=== PATIENT | male | born 1975 | race Caucasian/White ===

== ENCOUNTER 2016-09-08 20:20 | Emergency (ER) | payer OTHER ==
[~2016-09-08] VITALS: Ht 175.3 cm; Wt 106.6 kg
[~2016-09-08 20:20] MED LIST: AMITRIPTYLINE H10 M1 PO; ANALPRAM HC 2.530 GM RECTAL; ATORVASTATIN CA40 MG PO; BENTYL 10 MG CA10 M1 PO; CARISOPRODOL 3350 MG PO; CELEBREX 200 M200 M1 PO; CLONAZEPAM 1 MG1 M1; CLONAZEPAM 1 MG1 M1 PO; CLONAZEPAM PO; COLACE100 MG PO; DOXYCYCLINE 10100 MG PO; FISH OIL 1,001000 M2 PO; FLEXERIL PO; HYDROCHLOROTH12.5 M1 PO; HYDROCHLOROTH12.5 MG PO; HYOSCYAMINE0.125 MG PO; KLONOPIN0.5 MG PO; KLONOPIN1 MG PO; LIPITOR20 MG PO; MEDROLDOSEPACK PO; METAMUCIL PAC1 UDPKT PO; MICARDIS40 MG PO; MIRALAX17 GM PO; MULTIVITAMINS1 EAC7 PO; NAPROSYN500 MG PO; NEURONTIN600 MG PO; NORCO 5-325 TA1 EACH PO; ONDANSETRON HCL4 M2 PO; OXYCODONE HCL 55 MG PO; PERCOCET 5-3251 EACH PO; PREDNISONE 20 M20 MG PO; PRISTIQ100 MG; PRISTIQ50 MG PO; RITALIN PO; STRATTERA100 MG PO; TRAZODONE 100100 MG PO; TRILIPIX135 MG PO; TRILIPIX45 MG PO; VISTARIL 25 MG25 M1 PO
[2016-09-08] MEDS ORDERED: IMITREX100 MG PO (20:27)
[2016-09-08 21:30] LABS: CALCIUM 9.2 mg/dL (8.5-10.1); POTASSIUM 3.9 mmol/L (3.5-5.1)
[2016-09-08 21:57] LABS: ABSOLUTE NEUTROPHILS 5.9 thou/uL (1.4-8.2); BASOPHILS 0.8 % (0.0-2.0); EOSINOPHILS 2.6 % (0.0-3.0); HEMATOCRIT 43.4 % (42.0-52.0); HEMOGLOBIN 14.9 gm/dL (14.0-18.0); LYMPHOCYTES 31.6 % (24.0-44.0); MCH 32.7 pg (26.0-34.0); MCHC 34.3 g/dL (28.0-37.0); MCV 95.4 fL (80.0-100.0); MONOCYTES 9.4 % (1.0-8.0); PLATELET COUNT 226 thou/uL (150-400); POLYS 55.6 % (36.0-66.0); RBC 4.55 mil/uL (4.50-6.00); RDW 13.3 % (10.5-14.5); URINE BILIRUBIN NEGATIVE (Negative); URINE BLOOD TRACE (Negative); URINE COLOR YELLOW; URINE GLUCOSE-RANDOM* NEGATIVE (Negative); URINE KETONES NEGATIVE (Negative); URINE LEUKOCYTES-REFLEX NEGATIVE (Negative); URINE PROTEIN (DIPSTICK) NEGATIVE (Negative); URINE SPECIFIC GRAVITY >= 1.030 (1.003-1.035); URINE UROBILINOGEN 0.2 E.U./dl (0.2-1.0); WBC 10.6 thou/uL (4.0-11.0)
[2016-09-08 21:59] LABS: MANUAL DIFF NO
[2016-09-08 22:05] LABS: AMP/METHAMP Negative (Negative); BARBITURATES Negative (Negative); BENZODIAZEPINES Negative (Negative); COCAINE Negative (Negative); METHADONE Negative (Negative); OPIATES Negative (Negative); PCP Negative (Negative); THC Negative (Negative)
[2016-09-08] MEDS ORDERED: ULTRAM 50MG TAB50 MG PO (22:34)
[2016-09-08 22:47] VITALS: BP 126/67
== END 2016-09-08 22:35 | disposition still patient (30) ==
LOC: ER 20:20
PROVIDERS: Emergency Medicine
DX: G43.909 Migraine, unspecified, not intractable, without status migrainosus (principal); F41.9 Anxiety disorder, unspecified; I10 Essential (primary) hypertension; E78.00 Pure hypercholesterolemia, unspecified; G47.30 Sleep apnea, unspecified; K58.9 Irritable bowel syndrome, unspecified; Z88.8 Allergy status to other drugs, medicaments and biological substances; Z87.442 Personal history of urinary calculi; Z90.49 Acquired absence of other specified parts of digestive tract; Z88.6 Allergy status to analgesic agent; Z88.5 Allergy status to narcotic agent

== ENCOUNTER 2017-03-17 13:10 | Emergency (ER) | payer OTHER ==
[~2017-03-17] VITALS: Ht 167.6 cm; Wt 99.8 kg
[~2017-03-17 13:10] MED LIST changes: +IMITREX100 MG PO; +ULTRAM 50MG TAB50 MG PO
[2017-03-17] MEDS ORDERED: NORFLEX100 MG PO (14:30)
[2017-03-17] MEDS ORDERED: NAPROSYN500 MG PO (14:30)
[2017-03-17 15:07] VITALS: BP 142/78
== END 2017-03-17 15:08 | disposition home or self-care (01) ==
LOC: ER 13:10
DX: S30.0XXA Contusion of lower back and pelvis, initial encounter (principal); I10 Essential (primary) hypertension; G89.29 Other chronic pain; F41.9 Anxiety disorder, unspecified; K58.9 Irritable bowel syndrome, unspecified; E78.00 Pure hypercholesterolemia, unspecified; Z87.442 Personal history of urinary calculi; Z90.49 Acquired absence of other specified parts of digestive tract; Z88.8 Allergy status to other drugs, medicaments and biological substances; Z88.6 Allergy status to analgesic agent

== ENCOUNTER 2018-06-04 19:15 | Emergency (ER) | payer OTHER ==
[~2018-06-04] VITALS: Ht 172.7 cm; Wt 113.4 kg
[~2018-06-04 19:15] MED LIST changes: +NORFLEX100 MG PO
[2018-06-04 19:55] LABS: HEMATOCRIT 44.9 % (42.0-52.0); HEMOGLOBIN 15.8 gm/dL (14.0-18.0); MCH 33.1 pg (26.0-34.0); MCHC 35.3 g/dL (28.0-37.0); MCV 93.8 fL (80.0-100.0); RBC 4.78 mil/uL (4.50-6.00); WBC 8.6 thou/uL (4.0-11.0)
[2018-06-04 20:00] LABS: ANION GAP 7 mmol/L (7-16); BUN 16 mg/dL (7-18); CHLORIDE 104 mmol/L (98-107); CO2 30 mmol/L (21-32); GLUCOSE 102 mg/dL (74-106); POTASSIUM 3.5 mmol/L (3.5-5.1); SODIUM 141 mmol/L (136-145)
[2018-06-04] MEDS ORDERED: ATORVASTATIN CA40 MG PO (20:06)
[2018-06-04] MEDS ORDERED: NORVASC5 MG PO (20:06)
[2018-06-04] MEDS ORDERED: ASPIR 8181 MG PO (20:06)
[2018-06-04] MEDS ORDERED: HYZAAR 100-12.1 EACH PO (20:07)
[2018-06-04] MEDS ORDERED: VERAPAMIL HCL40 MG PO (20:08)
[2018-06-04] MEDS ORDERED: WELLBUTRIN XL150 MG PO (20:09)
[2018-06-04 20:10] LABS: ALBUMIN 3.8 g/dL (3.4-5.0); SGOT 27 U/L (15-37); SGPT 43 U/L (30-65); TOTAL BILIRUBIN 0.3 mg/dL (<0.1-1.0); TOTAL PROTEIN 7.2 g/dL (6.4-8.2); TROPONIN-I <0.06 ng/mL (<0.06)
[2018-06-04 21:10] LABS: URINE BILIRUBIN NEGATIVE (Negative); URINE BLOOD 1+ (Negative); URINE CLARITY CLEAR; URINE COLOR YELLOW; URINE GLUCOSE-RANDOM* NEGATIVE (Negative); URINE KETONES NEGATIVE (Negative); URINE LEUKOCYTES-REFLEX NEGATIVE (Negative); URINE NITRITE-REFLEX NEGATIVE (Negative); URINE PROTEIN (DIPSTICK) NEGATIVE (Negative); URINE SPECIFIC GRAVITY 1.015 (1.005-1.035); URINE UROBILINOGEN 0.2 E.U./dl (0.2-1.0)
[2018-06-04] MEDS ORDERED: NORCO 5-325 TA1 EACH PO (21:27)
[2018-06-04] MEDS ORDERED: TORADOL 10 MG T10 MG PO (21:27)
[2018-06-04 22:32] LABS: BACTERIA-REFLEX 1-9 Few /HPF (None Seen); CALCIUM OXALATE 0-3 Few /LPF (None Seen); CASTS None Seen /LPF (None Seen); SQUAMOUS 0-3 Few /LPF (0-3); URINE RBC 0-2 Rare /HPF (0-2); URINE WBC-REFLEX 0-5 Rare /HPF (0-5)
[2018-06-04] MEDS ORDERED: MIRALAX17 GM PO (23:13)
[2018-06-04 23:28] VITALS: BP 127/91
== END 2018-06-04 23:29 | disposition home or self-care (01) ==
LOC: ER 19:15
PROVIDERS: Student in an Organized Health Care Education/Training Program
DX: N20.0 Calculus of kidney (principal); G43.909 Migraine, unspecified, not intractable, without status migrainosus; F41.9 Anxiety disorder, unspecified; K58.9 Irritable bowel syndrome, unspecified; E78.00 Pure hypercholesterolemia, unspecified; G47.30 Sleep apnea, unspecified; I10 Essential (primary) hypertension; Z87.442 Personal history of urinary calculi; Z90.49 Acquired absence of other specified parts of digestive tract; Z88.8 Allergy status to other drugs, medicaments and biological substances

== ENCOUNTER 2018-07-10 15:46 | Emergency (ER) | payer OTHER ==
[~2018-07-10] VITALS: Ht 175.3 cm; Wt 113.4 kg
[~2018-07-10 15:46] MED LIST changes: +ASPIR 8181 MG PO; +HYZAAR 100-12.1 EACH PO; +NORVASC5 MG PO; +TORADOL 10 MG T10 MG PO; +VERAPAMIL HCL40 MG PO; +WELLBUTRIN XL150 MG PO
[2018-07-10 16:07] LABS: URINE BILIRUBIN NEGATIVE (Negative); URINE BLOOD 2+ (Negative); URINE CLARITY CLEAR; URINE COLOR YELLOW; URINE GLUCOSE-RANDOM* NEGATIVE (Negative); URINE KETONES NEGATIVE (Negative); URINE LEUKOCYTES-REFLEX NEGATIVE (Negative); URINE NITRITE-REFLEX NEGATIVE (Negative); URINE PROTEIN (DIPSTICK) 1+ (Negative); URINE SPECIFIC GRAVITY >= 1.030 (1.005-1.035); URINE UROBILINOGEN 0.2 E.U./dl (0.2-1.0)
[2018-07-10 16:15] LABS: CRYSTALS None Seen /LPF (None Seen); SQUAMOUS None Seen /LPF (0-3); URINE RBC 0-2 Rare /HPF (0-2)
[2018-07-10 16:16] LABS: BACTERIA-REFLEX 1-9 Few /HPF (None Seen); HYALINE CASTS 0-3 Few /LPF (None Seen); URINE WBC-REFLEX None Seen /HPF (0-5)
[2018-07-10 17:14] LABS: ABSOLUTE NEUTROPHILS 4.7 thou/uL (1.4-8.2); EOSINOPHILS 1.4 % (0.0-3.0); HEMATOCRIT 41.9 % (42.0-52.0); HEMOGLOBIN 14.7 gm/dL (14.0-18.0); LYMPHOCYTES 28.9 % (24.0-44.0); MCH 33.4 pg (26.0-34.0); MCHC 35.2 g/dL (28.0-37.0); MCV 94.9 fL (80.0-100.0); MONOCYTES 8.8 % (1.0-8.0); PLATELET COUNT 234 thou/uL (150-400); POLYS 59.9 % (36.0-66.0); RBC 4.41 mil/uL (4.50-6.00); RDW 12.8 % (10.5-14.5); WBC 7.9 thou/uL (4.0-11.0)
[2018-07-10 17:22] LABS: POTASSIUM 3.5 mmol/L (3.5-5.1)
[2018-07-10 17:29] LABS: ALBUMIN 3.5 g/dL (3.4-5.0); TOTAL BILIRUBIN 0.5 mg/dL (<0.1-1.0); TOTAL PROTEIN 6.5 g/dL (6.4-8.2)
[2018-07-10] MEDS ORDERED: NORCO 5-325 TA1 EACH PO (18:39)
[2018-07-10] MEDS ORDERED: BACTRIM DS TAB1 EACH PO (18:39)
[2018-07-10 19:14] VITALS: BP 170/108
== END 2018-07-10 19:19 | disposition home or self-care (01) ==
LOC: ER 15:46
PROVIDERS: Physician Assistant
DX: R10.9 Unspecified abdominal pain (principal); K58.9 Irritable bowel syndrome, unspecified; E78.00 Pure hypercholesterolemia, unspecified; G47.30 Sleep apnea, unspecified; G43.909 Migraine, unspecified, not intractable, without status migrainosus; F41.9 Anxiety disorder, unspecified; I10 Essential (primary) hypertension; Z87.442 Personal history of urinary calculi; Z90.49 Acquired absence of other specified parts of digestive tract; Z88.8 Allergy status to other drugs, medicaments and biological substances; Z98.52 Vasectomy status

== ENCOUNTER 2018-11-14 14:19 | Emergency (ER) | payer OTHER ==
[~2018-11-14] VITALS: Ht 175.3 cm; Wt 113.4 kg
[~2018-11-14 14:19] MED LIST changes: +BACTRIM DS TAB1 EACH PO
[2018-11-14 14:42] LABS: URINE BILIRUBIN NEGATIVE (Negative); URINE BLOOD 2+ (Negative); URINE CLARITY CLEAR; URINE COLOR YELLOW; URINE GLUCOSE-RANDOM* TRACE (Negative); URINE KETONES NEGATIVE (Negative); URINE LEUKOCYTES NEGATIVE (Negative); URINE NITRITE NEGATIVE (Negative); URINE PROTEIN (DIPSTICK) NEGATIVE (Negative); URINE SPECIFIC GRAVITY 1.025 (1.005-1.035); URINE UROBILINOGEN 0.2 E.U./dl (0.2-1.0)
[2018-11-14 14:53] LABS: SQUAMOUS 0-3 Few /LPF (0-3)
[2018-11-14 14:54] LABS: CASTS None Seen /LPF (None Seen); MUCUS 4-6 Moderate strn/LPF (None Seen); URINE RBC 3-10 Few /HPF (0-2); URINE WBC 0-5 Rare /HPF (0-5)
[2018-11-14 14:55] LABS: BACTERIA 1-9 Few /HPF (None Seen); CRYSTALS None Seen /LPF (None Seen)
[2018-11-14 15:01] LABS: ABSOLUTE NEUTROPHILS 8.1 thou/uL (1.4-8.2); BASOPHILS 0.8 % (0.0-2.0); EOSINOPHILS 1.2 % (0.0-3.0); HEMATOCRIT 47.4 % (42.0-52.0); HEMOGLOBIN 16.5 gm/dL (14.0-18.0); LYMPHOCYTES 20.3 % (24.0-44.0); MCH 33.3 pg (26.0-34.0); MCHC 34.9 g/dL (28.0-37.0); MCV 95.4 fL (80.0-100.0); MONOCYTES 6.9 % (1.0-8.0); PLATELET COUNT 228 thou/uL (150-400); POLYS 70.8 % (36.0-66.0); RBC 4.97 mil/uL (4.50-6.00); RDW 12.9 % (10.5-14.5); WBC 11.4 thou/uL (4.0-11.0)
[2018-11-14 15:07] LABS: CALCIUM 9.9 mg/dL (8.5-10.1); CREATININE 1.1 mg/dL (0.7-1.3); POTASSIUM 3.6 mmol/L (3.5-5.1)
[2018-11-14 15:13] LABS: ALBUMIN 3.9 g/dL (3.4-5.0); TOTAL BILIRUBIN 0.4 mg/dL (<0.1-1.0); TOTAL PROTEIN 7.5 g/dL (6.4-8.2)
[2018-11-14] MEDS ORDERED: NAPROSYN500 MG PO (16:52)
[2018-11-14] MEDS ORDERED: BENTYL 20 MG TA20 M1 PO (16:52)
[2018-11-14 17:06] VITALS: BP 147/106
== END 2018-11-14 17:06 | disposition home or self-care (01) ==
LOC: ER 14:19
PROVIDERS: Emergency Medicine
DX: M54.5 Low back pain (principal); G43.909 Migraine, unspecified, not intractable, without status migrainosus; F41.9 Anxiety disorder, unspecified; I10 Essential (primary) hypertension; K58.9 Irritable bowel syndrome, unspecified; E78.00 Pure hypercholesterolemia, unspecified; G47.30 Sleep apnea, unspecified; Z87.442 Personal history of urinary calculi; Z90.49 Acquired absence of other specified parts of digestive tract; Z98.52 Vasectomy status; Z87.891 Personal history of nicotine dependence; Z88.8 Allergy status to other drugs, medicaments and biological substances

== ENCOUNTER 2019-01-30 17:16 | Emergency (ER) | payer OTHER ==
[~2019-01-30] VITALS: Ht 175.3 cm; Wt 113.4 kg
[~2019-01-30 17:16] MED LIST changes: +BENTYL 20 MG TA20 M1 PO
[2019-01-30] MEDS ORDERED: LOSARTAN-HCTZ1 EAC3 PO (17:34)
[2019-01-30 17:51] LABS: ABSOLUTE NEUTROPHILS 6.7 thou/uL (1.4-8.2); BASOPHILS 0.7 % (0.0-2.0); EOSINOPHILS 0.7 % (0.0-3.0); HEMATOCRIT 45.3 % (42.0-52.0); HEMOGLOBIN 15.6 gm/dL (14.0-18.0); LYMPHOCYTES 22.2 % (24.0-44.0); MCH 32.5 pg (26.0-34.0); MCHC 34.4 g/dL (28.0-37.0); MCV 94.7 fL (80.0-100.0); MONOCYTES 5.4 % (1.0-8.0); PLATELET COUNT 232 thou/uL (150-400); RBC 4.79 mil/uL (4.50-6.00); RDW 12.7 % (10.5-14.5); WBC 9.4 thou/uL (4.0-11.0)
[2019-01-30 17:57] LABS: ANION GAP 10 mmol/L (7-16); BUN 12 mg/dL (7-18); CALCIUM 9.6 mg/dL (8.5-10.1); CHLORIDE 106 mmol/L (98-107); CO2 25 mmol/L (21-32); CREATININE 1.1 mg/dL (0.7-1.3); GLUCOSE 135 mg/dL (74-106); POTASSIUM 3.8 mmol/L (3.5-5.1); SODIUM 141 mmol/L (136-145)
[2019-01-30 18:06] LABS: TROPONIN-I <0.06 ng/mL (<0.06)
--- NOTE | 2019-01-30 19:32 | EKG ---
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: CARRILLO : 1975 Requested By: Tejas Mcclellan Order Number: [id number] MD: Mario Raymond Measurements Intervals [place] Rate: 96 P: 44 [place]: 168 QRS: -25 QRSD: 83 T: 31 QT: 336 QTc: 425 Interpretive Statements Sinus rhythm Borderline left axis deviation Compared to ECG 11/06/2013 16:32:05 Ventricular premature complex(es) no longer present T-wave abnormality no longer present Electronically Signed On 01-30-2019 19:32:34 MACHINE DYER by Mario Raymond [email or web address] <ELECTRONICALLY SIGNED> By: Mario Raymond MD, [facility] 01/30/191931 21 21 Mario Raymond MD, [facility] /EPI
[2019-01-30] MEDS ORDERED: OMEPRAZOLE40 MG PO (20:27)
[2019-01-30] MEDS ORDERED: MOBIC7.5 MG PO (20:27)
[2019-01-30 20:47] VITALS: BP 147/96
== END 2019-01-30 20:45 | disposition home or self-care (01) ==
LOC: ER 17:16
PROVIDERS: Nurse Practitioner
DX: M94.0 Chondrocostal junction syndrome [Tietze] (principal); I10 Essential (primary) hypertension; G43.909 Migraine, unspecified, not intractable, without status migrainosus; F41.9 Anxiety disorder, unspecified; E78.00 Pure hypercholesterolemia, unspecified; G47.30 Sleep apnea, unspecified; Z87.442 Personal history of urinary calculi; Z90.79 Acquired absence of other genital organ(s); Z88.8 Allergy status to other drugs, medicaments and biological substances; Z87.891 Personal history of nicotine dependence

== ENCOUNTER 2019-02-28 15:14 | Emergency (ER) | payer OTHER ==
[~2019-02-28] VITALS: Ht 175.3 cm; Wt 113.4 kg
[~2019-02-28 15:14] MED LIST changes: +LOSARTAN-HCTZ1 EAC3 PO; +MOBIC7.5 MG PO; +OMEPRAZOLE40 MG PO
[2019-02-28] MEDS ORDERED: CELEXA 20 MG TA20 MG PO (15:54)
[2019-02-28] MEDS ORDERED: VERAPAMIL ER240 M1 PO (15:54)
[2019-02-28] MEDS ORDERED: CLONAZEPAM 0.50.5 M1 PO (15:55)
[2019-02-28 17:10] LABS: HEMOGLOBIN 15.1 gm/dL (14.0-18.0); MCH 32.5 pg (26.0-34.0); MCHC 34.4 g/dL (28.0-37.0); MCV 94.4 fL (80.0-100.0); RBC 4.67 mil/uL (4.50-6.00); RDW 12.9 % (10.5-14.5); WBC 9.2 thou/uL (4.0-11.0)
[2019-02-28 17:13] LABS: URINE BILIRUBIN NEGATIVE (Negative); URINE BLOOD 2+ (Negative); URINE CLARITY CLEAR; URINE COLOR YELLOW; URINE GLUCOSE-RANDOM* NEGATIVE (Negative); URINE KETONES NEGATIVE (Negative); URINE LEUKOCYTES-REFLEX NEGATIVE (Negative); URINE NITRITE-REFLEX NEGATIVE (Negative); URINE PROTEIN (DIPSTICK) NEGATIVE (Negative); URINE SPECIFIC GRAVITY >= 1.030 (1.005-1.035); URINE UROBILINOGEN 0.2 E.U./dl (0.2-1.0)
[2019-02-28 17:18] LABS: CALCIUM 9.6 mg/dL (8.5-10.1); CREATININE 1.1 mg/dL (0.7-1.3); POTASSIUM 3.7 mmol/L (3.5-5.1)
[2019-02-28 17:24] LABS: ALBUMIN 3.7 g/dL (3.4-5.0); DIRECT BILIRUBIN 0.1 mg/dL (<0.1-0.2); TOTAL BILIRUBIN 0.6 mg/dL (<0.1-1.0); TOTAL PROTEIN 7.1 g/dL (6.4-8.2)
[2019-02-28 17:26] LABS: CASTS None Seen /LPF (None Seen); CRYSTALS None Seen /LPF (None Seen); SQUAMOUS 0-3 Few /LPF (0-3); URINE WBC-REFLEX None Seen /HPF (0-5)
[2019-02-28 17:27] LABS: BACTERIA-REFLEX 1-9 Few /HPF (None Seen); URINE RBC 0-2 Rare /HPF (0-2)
[2019-02-28] MEDS ORDERED: IBUPROFEN 600600 M1 PO (19:11)
[2019-02-28] MEDS ORDERED: NORCO 5-325 TA1 EAC1 PO (19:11)
[2019-02-28 19:33] VITALS: BP 170/99
== END 2019-02-28 19:34 | disposition home or self-care (01) ==
LOC: ER 15:14
PROVIDERS: Emergency Medicine Emergency Medical Services
DX: R10.9 Unspecified abdominal pain (principal); I10 Essential (primary) hypertension; E78.00 Pure hypercholesterolemia, unspecified; K58.9 Irritable bowel syndrome, unspecified; G47.30 Sleep apnea, unspecified; G43.909 Migraine, unspecified, not intractable, without status migrainosus; F41.9 Anxiety disorder, unspecified; Z87.891 Personal history of nicotine dependence; Z87.442 Personal history of urinary calculi; Z90.49 Acquired absence of other specified parts of digestive tract; Z98.52 Vasectomy status; Z88.8 Allergy status to other drugs, medicaments and biological substances

== ENCOUNTER 2019-03-11 00:28 | Emergency (ER) | payer OTHER ==
[~2019-03-11] VITALS: Ht 175.3 cm; Wt 113.4 kg
[~2019-03-11 00:28] MED LIST changes: +CELEXA 20 MG TA20 MG PO; +CLONAZEPAM 0.50.5 M1 PO; +IBUPROFEN 600600 M1 PO; +NORCO 5-325 TA1 EAC1 PO; +VERAPAMIL ER240 M1 PO
[2019-03-11] MEDS ORDERED: MOBIC15 MG PO (02:58)
[2019-03-11 03:14] VITALS: BP 144/79
== END 2019-03-11 03:15 | disposition home or self-care (01) ==
LOC: ER 00:28
DX: M54.5 Low back pain (principal); I10 Essential (primary) hypertension; E78.00 Pure hypercholesterolemia, unspecified; K58.9 Irritable bowel syndrome, unspecified; G47.30 Sleep apnea, unspecified; G43.909 Migraine, unspecified, not intractable, without status migrainosus; F41.9 Anxiety disorder, unspecified; Z87.442 Personal history of urinary calculi; Z90.49 Acquired absence of other specified parts of digestive tract; Z98.52 Vasectomy status; Z87.891 Personal history of nicotine dependence; Z88.8 Allergy status to other drugs, medicaments and biological substances

== ENCOUNTER 2019-04-05 18:43 | Emergency (ER) | payer OTHER ==
[~2019-04-05] VITALS: Ht 175.3 cm; Wt 97.5 kg
[~2019-04-05 18:43] MED LIST changes: +MOBIC15 MG PO
[2019-04-05] MEDS ORDERED: FLEXERIL PO (20:03)
[2019-04-05 20:13] VITALS: BP 172/108
== END 2019-04-05 20:13 | disposition home or self-care (01) ==
LOC: ER 18:43
DX: S13.4XXA Sprain of ligaments of cervical spine, initial encounter (principal); F41.9 Anxiety disorder, unspecified; I10 Essential (primary) hypertension; E78.00 Pure hypercholesterolemia, unspecified; Z87.891 Personal history of nicotine dependence; Z88.1 Allergy status to other antibiotic agents; Z88.8 Allergy status to other drugs, medicaments and biological substances; Z90.49 Acquired absence of other specified parts of digestive tract; W22.8XXA Striking against or struck by other objects, initial encounter; Y93.89 Activity, other specified; Y92.89 Other specified places as the place of occurrence of the external cause; Y99.0 Civilian activity done for income or pay

== ENCOUNTER 2019-04-30 18:53 | Emergency (ER) | payer OTHER ==
[~2019-04-30] VITALS: Ht 175.3 cm; Wt 113.4 kg
[2019-04-30] MEDS ORDERED: TRAMADOL 50 MG50 MG PO (19:08)
[2019-04-30] MEDS ORDERED: LOSARTAN-HCTZ1 EAC2 PO (19:09)
[2019-04-30 19:29] LABS: ABSOLUTE NEUTROPHILS 6.6 thou/uL (1.4-8.2); BASOPHILS 1.3 % (0.0-2.0); EOSINOPHILS 0.7 % (0.0-3.0); HEMATOCRIT 43.9 % (42.0-52.0); LYMPHOCYTES 22.1 % (24.0-44.0); MCH 32.5 pg (26.0-34.0); MCHC 34.2 g/dL (28.0-37.0); MONOCYTES 8.2 % (1.0-8.0); PLATELET COUNT 226 thou/uL (150-400); POLYS 67.7 % (36.0-66.0); RBC 4.62 mil/uL (4.50-6.00); RDW 12.6 % (10.5-14.5); WBC 9.7 thou/uL (4.0-11.0)
[2019-04-30 19:48] LABS: ANION GAP 9 mmol/L (7-16); BUN 20 mg/dL (7-18); CHLORIDE 105 mmol/L (98-107); CO2 27 mmol/L (21-32); CREATININE 1.4 mg/dL (0.7-1.3); GLUCOSE 107 mg/dL (74-106); POTASSIUM 3.9 mmol/L (3.5-5.1); SODIUM 141 mmol/L (136-145)
[2019-04-30 19:56] LABS: TROPONIN-I <0.06 ng/mL (<0.06)
[2019-05-01 00:59] VITALS: BP 152/92
--- NOTE | 2019-05-02 12:34 | EKG ---
[facility] [place] [address] [place] [address] ELECTROCARDIOGRAM REPORT Name: MACHO STRANGE Room #: DEP [facility]#: [id number] Admission: 04/30/19 Attend Phys: Discharge: 05/01/19 Date of : 71 Report #: [id number] THIS REPORT FOR: cc: CARMEN - Kandi family physician/PCP CARMEN - Kandi family physician/PCP Mario Raymond MD [facility] THIS REPORT FOR: //name// [facility] ED Test Date: 2019-04-30 Test Time: 18:57:28 Pat Name: MACHO STRANGE Department: Room: Gender: Library Helper: : 1975 Requested By: Rodriguez Gillette Order Number: [id number] MD: Mario Raymond Measurements Intervals [place] Rate: 93 P: 45 [place]: 165 QRS: -21 QRSD: 77 T: 75 QT: 345 QTc: 430 Interpretive Statements Sinus rhythm Occasional premature ventricular complexes Borderline left axis deviation Compared to ECG 01/30/2019 17:22:15 Ventricular premature complex(es) now present Electronically Signed On 05-01-2019 9:13:09 PROTOTYPE MACHINIST by Mario Raymond [email or web address] <ELECTRONICALLY SIGNED> By: Mario Raymond MD, [facility] 05/01/19 0913 56 56 Mario Raymond MD, [facility] /EPI
== END 2019-05-01 01:01 | disposition home or self-care (01) ==
LOC: ER 18:53
PROVIDERS: Emergency Medicine
DX: R07.9 Chest pain, unspecified (principal); I10 Essential (primary) hypertension; E78.00 Pure hypercholesterolemia, unspecified; K58.9 Irritable bowel syndrome, unspecified; G47.30 Sleep apnea, unspecified; G43.909 Migraine, unspecified, not intractable, without status migrainosus; F41.9 Anxiety disorder, unspecified; Z87.442 Personal history of urinary calculi; Z90.49 Acquired absence of other specified parts of digestive tract; Z87.891 Personal history of nicotine dependence; Z98.52 Vasectomy status; Z88.8 Allergy status to other drugs, medicaments and biological substances

== ENCOUNTER 2019-08-16 06:42 | Emergency (ER) | payer OTHER ==
[~2019-08-16] VITALS: Ht 175.3 cm; Wt 113.4 kg
[~2019-08-16 06:42] MED LIST changes: +LOSARTAN-HCTZ1 EAC2 PO; +TRAMADOL 50 MG50 MG PO
[2019-08-16] MEDS ORDERED: NORCO 5-325 TA1 EAC1 PO (07:58)
[2019-08-16 08:05] VITALS: BP 151/90
== END 2019-08-16 08:05 | disposition home or self-care (01) ==
LOC: ER 06:42
DX: M25.561 Pain in right knee (principal); M25.562 Pain in left knee; R60.0 Localized edema; I10 Essential (primary) hypertension; E78.00 Pure hypercholesterolemia, unspecified; Z98.890 Other specified postprocedural states; Z87.442 Personal history of urinary calculi; Z79.899 Other long term (current) drug therapy; Z88.8 Allergy status to other drugs, medicaments and biological substances; Z87.891 Personal history of nicotine dependence

== ENCOUNTER 2019-10-09 02:13 | Emergency (ER) | payer OTHER ==
[~2019-10-09] VITALS: Ht 175.3 cm; Wt 113.4 kg
[2019-10-09] MEDS ORDERED: TRAMADOL 50 MG50 MG PO (02:43)
[2019-10-09 02:57] LABS: URINE BILIRUBIN NEGATIVE (Negative); URINE BLOOD 2+ (Negative); URINE CLARITY CLEAR; URINE COLOR YELLOW; URINE GLUCOSE-RANDOM* NEGATIVE (Negative); URINE KETONES NEGATIVE (Negative); URINE LEUKOCYTES-REFLEX NEGATIVE (Negative); URINE NITRITE-REFLEX NEGATIVE (Negative); URINE PROTEIN (DIPSTICK) TRACE (Negative)
[2019-10-09 02:58] LABS: ABSOLUTE NEUTROPHILS 4.2 thou/uL (1.4-8.2); BASOPHILS 1.1 % (0.0-2.0); EOSINOPHILS 3.2 % (0.0-3.0); HEMATOCRIT 47.7 % (42.0-52.0); HEMOGLOBIN 16.5 gm/dL (14.0-18.0); LYMPHOCYTES 34.9 % (24.0-44.0); MCH 34.2 pg (26.0-34.0); MCHC 34.6 g/dL (28.0-37.0); MCV 98.6 fL (80.0-100.0); MONOCYTES 10.4 % (1.0-8.0); PLATELET COUNT 207 thou/uL (150-400); POLYS 50.4 % (36.0-66.0); RBC 4.83 mil/uL (4.50-6.00); RDW 13.3 % (10.5-14.5); WBC 8.4 thou/uL (4.0-11.0)
[2019-10-09 03:01] LABS: ANION GAP 6 mmol/L (7-16); BUN 15 mg/dL (7-18); CALCIUM 8.4 mg/dL (8.5-10.1); CHLORIDE 103 mmol/L (98-107); CO2 28 mmol/L (21-32); GLUCOSE 107 mg/dL (74-106); POTASSIUM 3.6 mmol/L (3.5-5.1); SODIUM 137 mmol/L (136-145)
[2019-10-09 03:11] LABS: ALBUMIN 3.5 g/dL (3.4-5.0); SGOT 63 U/L (15-37); SGPT 113 U/L (30-65); TOTAL BILIRUBIN 0.5 mg/dL (0.2-1.0); TOTAL PROTEIN 6.9 g/dL (6.4-8.2); TROPONIN-I <0.06 ng/mL (<0.06)
[2019-10-09 04:44] VITALS: BP 150/94
[2019-10-09 04:47] LABS: BACTERIA-REFLEX None Seen /HPF (None Seen); CASTS None Seen /LPF (None Seen); CRYSTALS None Seen /LPF (None Seen); MUCUS None Seen strn/LPF (None Seen); SQUAMOUS None Seen /LPF (0-3); URINE RBC 0-2 Rare /HPF (0-2); URINE WBC-REFLEX None Seen /HPF (0-5)
--- NOTE | 2019-10-09 08:51 | EKG ---
[facility] [address] [place] [address] ELECTROCARDIOGRAM REPORT Name: MACHO STRANGE [id number] Admission: 10/09/19 Attend Phys: Discharge: 10/09/19 Date of : 71 Report #: [id number] THIS REPORT FOR: cc: NO FAMILY PHYSICIAN or PCP NO FAMILY PHYSICIAN or PCP Mario Raymond MD [facility] ~ THIS REPORT FOR: //name// [facility] ED Test Date: 2019-10-09 Test Time: 02:29:56 Pat Name: MACHO STRANGE Department: Room: Gender: Associate Vice President: [facility] : 1975 Requested By: Herberth Sullivan Order Number: [id number] MD: Mario Raymond Measurements Intervals [place] Rate: 79 P: 46 [place]: 166 QRS: -22 QRSD: 88 T: 38 QT: 374 QTc: 429 Interpretive Statements Sinus rhythm Borderline left axis deviation Compared to ECG 04/30/2019 18:57:28 Ventricular premature complex(es) no longer present Electronically Signed On 10-09-2019 8:51:03 CDT by Mario Raymond [email or web address] <ELECTRONICALLY SIGNED> By: Mario Raymond MD, [facility] 10/09/19 0851 0229 Mario Raymond MD, [facility] /EPI
== END 2019-10-09 04:44 | disposition home or self-care (01) ==
LOC: ER 02:13
PROVIDERS: Emergency Medicine
DX: M54.5 Low back pain (principal); G89.29 Other chronic pain; M54.2 Cervicalgia; M54.6 Pain in thoracic spine; R25.2 Cramp and spasm; R11.2 Nausea with vomiting, unspecified; G43.909 Migraine, unspecified, not intractable, without status migrainosus; F41.9 Anxiety disorder, unspecified; I10 Essential (primary) hypertension; E78.00 Pure hypercholesterolemia, unspecified; Z87.442 Personal history of urinary calculi; Z90.49 Acquired absence of other specified parts of digestive tract; Z79.899 Other long term (current) drug therapy; Z88.8 Allergy status to other drugs, medicaments and biological substances; Z87.891 Personal history of nicotine dependence

== ENCOUNTER 2019-11-02 13:19 | Emergency (ER) | payer OTHER ==
[~2019-11-02] VITALS: Ht 175.3 cm; Wt 97.5 kg
[2019-11-02] MEDS ORDERED: NORCO 10-325 T1 EACH PO (19:40)
[2019-11-02 20:11] VITALS: BP 172/112
== END 2019-11-02 20:08 | disposition home or self-care (01) ==
LOC: ER 13:19
DX: M54.2 Cervicalgia (principal); M25.561 Pain in right knee; G43.909 Migraine, unspecified, not intractable, without status migrainosus; I10 Essential (primary) hypertension; E78.00 Pure hypercholesterolemia, unspecified; Z87.891 Personal history of nicotine dependence; Z88.8 Allergy status to other drugs, medicaments and biological substances; Z79.899 Other long term (current) drug therapy; Z98.890 Other specified postprocedural states; X50.1XXA Overexertion from prolonged static or awkward postures, initial encounter; Y93.02 Activity, running; Y92.69 Other specified industrial and construction area as the place of occurrence of the external cause; Y99.9 Unspecified external cause status

== ENCOUNTER 2019-12-14 14:26 | Emergency (ER) | payer OTHER ==
[~2019-12-14] VITALS: Ht 175.3 cm; Wt 113.4 kg
--- NOTE | ~2019-12-14 | EKG ---
[facility] [address] [place] [address] ELECTROCARDIOGRAM REPORT Name: MACHO STRANGE Room #: REG [facility].#: [id number] Admission: 12/14/19 Attend Phys: Discharge: Date of : 71 Report #: [id number] THIS REPORT FOR: cc: CARMEN - Kandi family physician/PCP CARMEN - No family physician/PCP Kevan Mathur MD ~ THIS REPORT FOR: //name// [facility] ED Test Date: 2019-12-14 Test Time: 14:34:31 Pat Name: MACHO STRANGE Department: Room: Gender: [employer] Former: : 1975 Requested By: Zeb Lee Order Number: [id number] MD: Measurements Intervals [place] Rate: 88 P: 38 [place]: 163 QRS: -26 QRSD: 87 T: 29 QT: 372 QTc: 450 Interpretive Statements Sinus rhythm Probable left atrial enlargement Left ventricular hypertrophy No previous ECG available for comparison [email or web address] By: [id number] Kevan Mathur MD /EPI
[~2019-12-14 14:26] MED LIST changes: +NORCO 10-325 T1 EACH PO
[2019-12-14 15:00] LABS: ABSOLUTE NEUTROPHILS 8.5 thou/uL (1.4-8.2); BASOPHILS 0.6 % (0.0-2.0); EOSINOPHILS 1.1 % (0.0-3.0); HEMATOCRIT 48.3 % (42.0-52.0); HEMOGLOBIN 16.6 gm/dL (14.0-18.0); LYMPHOCYTES 17.1 % (24.0-44.0); MCH 33.1 pg (26.0-34.0); MCHC 34.4 g/dL (28.0-37.0); MCV 96.3 fL (80.0-100.0); MONOCYTES 8.6 % (1.0-8.0); PLATELET COUNT 224 thou/uL (150-400); POLYS 72.6 % (36.0-66.0); RBC 5.02 mil/uL (4.50-6.00); RDW 12.6 % (10.5-14.5); WBC 11.8 thou/uL (4.0-11.0)
[2019-12-14 15:45] LABS: ANION GAP 16 mmol/L (7-16); BUN 18 mg/dL (7-18); CALCIUM 9.1 mg/dL (8.5-10.1); CHLORIDE 103 mmol/L (98-107); CO2 22 mmol/L (21-32); CREATININE 1.1 mg/dL (0.7-1.3); GLUCOSE 117 mg/dL (74-106); POTASSIUM 3.3 mmol/L (3.5-5.1); SODIUM 141 mmol/L (136-145)
[2019-12-14 15:55] LABS: ALBUMIN 4.8 g/dL (3.4-5.0); SGOT 114 U/L (15-37); SGPT 188 U/L (30-65); TOTAL BILIRUBIN 0.7 mg/dL (0.2-1.0); TOTAL PROTEIN 7.7 g/dL (6.4-8.2); TROPONIN-I <0.06 ng/mL (<0.06)
[2019-12-14 21:07] VITALS: BP 143/80
== END 2019-12-14 21:07 | disposition home or self-care (01) ==
LOC: ER 14:26
PROVIDERS: Emergency Medicine
DX: R07.89 Other chest pain (principal); I10 Essential (primary) hypertension; G43.909 Migraine, unspecified, not intractable, without status migrainosus; E78.5 Hyperlipidemia, unspecified; Z87.891 Personal history of nicotine dependence; Z88.8 Allergy status to other drugs, medicaments and biological substances

== ENCOUNTER 2020-02-18 00:03 | Emergency (ER) | payer OTHER ==
[~2020-02-18] VITALS: Ht 182.9 cm; Wt 108.9 kg
[2020-02-18] MEDS ORDERED: LOSARTAN-HCTZ1 EAC3 PO (00:13)
[2020-02-18] MEDS ORDERED: NEURONTIN300 MG PO (00:14)
[2020-02-18 01:49] LABS: ABSOLUTE NEUTROPHILS 4.3 thou/uL (1.4-8.2); BASOPHILS 0.2 % (0.0-2.0); EOSINOPHILS 3.7 % (0.0-3.0); HEMATOCRIT 44.6 % (42.0-52.0); HEMOGLOBIN 15.4 gm/dL (14.0-18.0); LYMPHOCYTES 33.5 % (24.0-44.0); MCH 33.8 pg (26.0-34.0); MCHC 34.7 g/dL (28.0-37.0); MCV 97.5 fL (80.0-100.0); MONOCYTES 8.4 % (1.0-8.0); PLATELET COUNT 215 thou/uL (150-400); POLYS 54.2 % (36.0-66.0); RBC 4.57 mil/uL (4.50-6.00); RDW 13.1 % (10.5-14.5)
[2020-02-18 01:54] LABS: ANION GAP 12 mmol/L (7-16); BUN 18 mg/dL (7-18); CALCIUM 8.9 mg/dL (8.5-10.1); CHLORIDE 103 mmol/L (98-107); CO2 24 mmol/L (21-32); CREATININE 1.3 mg/dL (0.7-1.3); GLUCOSE 160 mg/dL (74-106); SODIUM 139 mmol/L (136-145)
[2020-02-18 01:57] LABS: POTASSIUM 3.3 mmol/L (3.5-5.1)
[2020-02-18 02:02] LABS: TROPONIN-I <0.06 ng/mL (<0.06)
[2020-02-18 04:09] VITALS: BP 157/90
--- NOTE | 2020-02-18 07:36 | EKG ---
[facility] [address] [address] [place] [address] ELECTROCARDIOGRAM REPORT Name: MACHO STRANGE [id number] Admission: 02/18/20 Attend Phys: Discharge: 02/18/20 Date of : 71 Report #: [id number] THIS REPORT FOR: cc: CARMEN Chau family physician/PCP CARMEN Chau family physician/PCP Santos Mcdonald MD [facility] THIS REPORT FOR: //name// [facility] ED Test Date: 2020-02-18 Test Time: 00:13:19 Pat Name: MACHO STRANGE Department: Room: Gender: Oracle Fusion Middleware Developer: [facility] : 1975 Requested By: Rodriguez Gillette Order Number: [id number] MD: Santos Mcdonald Measurements Intervals [place] Rate: 91 P: 24 [place]: 165 QRS: -27 QRSD: 95 T: 18 QT: 360 QTc: 443 Interpretive Statements Sinus rhythm Probable left atrial enlargement Baseline wander in lead(s) I,II,aVR,aVL Compared to ECG 12/14/2019 14:34:31 Left ventricular hypertrophy no longer present Electronically Signed On 02-18-2020 7:36:24 VP DIRECTOR OF CREATIVE STRATEGY by Santos Mcdonald [email or web address] <ELECTRONICALLY SIGNED> By: Santos Mcdonald MD, FACC 02/18/20 0736 Santos Mcdonald MD, FAC /EPI
== END 2020-02-18 04:10 | disposition home or self-care (01) ==
LOC: ER 00:03
PROVIDERS: Emergency Medicine
DX: G43.909 Migraine, unspecified, not intractable, without status migrainosus (principal); H53.8 Other visual disturbances; R42 Dizziness and giddiness; I10 Essential (primary) hypertension; F32.9 Major depressive disorder, single episode, unspecified; F41.9 Anxiety disorder, unspecified; E78.00 Pure hypercholesterolemia, unspecified; Z87.442 Personal history of urinary calculi; Z90.49 Acquired absence of other specified parts of digestive tract; Z79.899 Other long term (current) drug therapy; Z88.8 Allergy status to other drugs, medicaments and biological substances; Z87.891 Personal history of nicotine dependence

== ENCOUNTER 2020-05-07 23:03 | Emergency (ER) | payer OTHER ==
[~2020-05-07] VITALS: Ht 175.3 cm; Wt 113.4 kg
[~2020-05-07 23:03] MED LIST changes: +NEURONTIN300 MG PO
[2020-05-07] MEDS ORDERED: LEXAPRO 10 MG T10 M1 PO (23:09)
[2020-05-08 00:27] VITALS: BP 153/79
--- NOTE | 2020-05-08 07:09 | EKG ---
[address] [address] ELECTROCARDIOGRAM REPORT Name: MACHO STRANGE [id number]: 05/07/20 Attend Phys: Discharge: 05/08/20 Date of : 71 Report #: [id number] [facility] ED Test Date: 2020-05-07 Test Time: 23:34:13 Pat Name: MACHO STRANGE Department: Room: Gender: Management Lecturer: [place] [id number] : 1975 Requested By: James Tadeo Order Number: [id number] MD: Santos Mcdonald Measurements Intervals [place] Rate: 93 P: [place]: QRS: -14 QRSD: 90 T: 29 QT: 376 QTc: 468 Interpretive Statements NSR Compared to ECG 02/18/2020 00:13:19 No significant change Electronically Signed On 05-08-2020 7:09:22 HIMS MANAGER by Santos Mcdonald [email or web address] <ELECTRONICALLY SIGNED> By: Santos Mcdonald MD, [facility] 05/08/20 0709 [id number] Santos Mcdonald MD, FACC /EPI
== END 2020-05-08 00:28 | disposition home or self-care (01) ==
LOC: ER 23:03
DX: G43.909 Migraine, unspecified, not intractable, without status migrainosus (principal); I10 Essential (primary) hypertension; E78.5 Hyperlipidemia, unspecified; Z90.49 Acquired absence of other specified parts of digestive tract; Z79.899 Other long term (current) drug therapy; Z87.891 Personal history of nicotine dependence; Z88.8 Allergy status to other drugs, medicaments and biological substances

== ENCOUNTER 2020-09-18 05:29 | Emergency (ER) | payer OTHER ==
[~2020-09-18] VITALS: Ht 175.3 cm; Wt 113.4 kg
[~2020-09-18 05:29] MED LIST changes: +LEXAPRO 10 MG T10 M1 PO
[2020-09-18] MEDS ORDERED: FLEXERIL PO (07:51)
[2020-09-18 08:10] VITALS: BP 215/80
== END 2020-09-18 08:10 | disposition home or self-care (01) ==
LOC: ER 05:29
DX: M54.5 Low back pain (principal); G89.29 Other chronic pain; G43.909 Migraine, unspecified, not intractable, without status migrainosus; I10 Essential (primary) hypertension; E78.00 Pure hypercholesterolemia, unspecified; F17.210 Nicotine dependence, cigarettes, uncomplicated; Z88.8 Allergy status to other drugs, medicaments and biological substances; Z87.442 Personal history of urinary calculi; Z98.890 Other specified postprocedural states; Z90.49 Acquired absence of other specified parts of digestive tract; W10.8XXA Fall (on) (from) other stairs and steps, initial encounter; Y93.89 Activity, other specified; Y92.89 Other specified places as the place of occurrence of the external cause; Y99.8 Other external cause status

== ENCOUNTER 2020-10-21 17:37 | Emergency (ER) | payer OTHER ==
[~2020-10-21] VITALS: Ht 175.3 cm; Wt 113.4 kg
[2020-10-21] MEDS ORDERED: LIPITOR 40 MG T40 M1 PO (17:54)
[2020-10-21 17:59] LABS: ABSOLUTE NEUTROPHILS 5.8 thou/uL (1.4-8.2); BASOPHILS 1.1 % (0.0-2.0); EOSINOPHILS 1.4 % (0.0-3.0); HEMATOCRIT 42.7 % (42.0-52.0); HEMOGLOBIN 14.8 gm/dL (14.0-18.0); LYMPHOCYTES 24.8 % (24.0-44.0); MCH 33.4 pg (26.0-34.0); MCHC 34.8 g/dL (28.0-37.0); PLATELET COUNT 227 thou/uL (150-400); POLYS 64.7 % (36.0-66.0); RBC 4.44 mil/uL (4.50-6.00); RDW 12.6 % (10.5-14.5); WBC 8.9 thou/uL (4.0-11.0)
[2020-10-21 18:10] LABS: ANION GAP 6 mmol/L (7-16); BUN 19 mg/dL (7-18); CALCIUM 9.3 mg/dL (8.5-10.1); CHLORIDE 105 mmol/L (98-107); CO2 29 mmol/L (21-32); CREATININE 1.5 mg/dL (0.7-1.3); GLUCOSE 123 mg/dL (74-106); POTASSIUM 3.6 mmol/L (3.5-5.1); SODIUM 140 mmol/L (136-145)
[2020-10-21 18:19] LABS: ALBUMIN 3.8 g/dL (3.4-5.0); LIPASE 173 U/L (73-393); SGOT 42 U/L (15-37); SGPT 65 U/L (16-63); TOTAL BILIRUBIN 0.3 mg/dL (0.2-1.0); TOTAL PROTEIN 7.3 g/dL (6.4-8.2); TROPONIN-I <0.06 ng/mL (<0.06)
[2020-10-21 20:54] VITALS: BP 135/84
--- NOTE | 2020-10-22 07:37 | EKG ---
[place] [address] [address] [facility] [place] [address] ELECTROCARDIOGRAM REPORT Name: ALEXANDRFATIMAHMACHOSABINO MEDINA [id number] Admission: 10/21/20 Attend Phys: Discharge: 10/21/20 Date of : 71 Report #: [id number] [facility] ED Test Date: 2020-10-21 Test Time: 17:39:17 Pat Name: MACHO STRANGE Department: Room: Gender: Regulatory Compliance Manager: : 1975 Requested By: Preston Mix Order Number: [id number] MD: Santos Mcdonald Measurements Intervals [place] Rate: 81 P: 32 ID: 161 QRS: -19 QRSD: 91 T: 25 QT: 370 QTc: 430 Interpretive Statements Sinus rhythm Left ventricular hypertrophy Compared to ECG 05/07/2020 23:34:13 Left ventricular hypertrophy now present Electronically Signed On 10-22-2020 7:37:17 CDT by Santos Mcdonald [email or web address] <ELECTRONICALLY SIGNED> By: Santos Mcdonald MD, [facility] 10/22/20 0737 1739 1739 Santos Mcdonald MD, FACC /EPI
== END 2020-10-21 21:16 | disposition home or self-care (01) ==
LOC: ER 17:37
PROVIDERS: Emergency Medicine
DX: R07.89 Other chest pain (principal); G43.909 Migraine, unspecified, not intractable, without status migrainosus; F41.9 Anxiety disorder, unspecified; I10 Essential (primary) hypertension; E78.00 Pure hypercholesterolemia, unspecified; Z20.822 Contact with and (suspected) exposure to COVID-19; Z90.49 Acquired absence of other specified parts of digestive tract; Z98.890 Other specified postprocedural states; Z79.899 Other long term (current) drug therapy; Z88.8 Allergy status to other drugs, medicaments and biological substances; Z87.891 Personal history of nicotine dependence

== ENCOUNTER 2020-11-07 12:21 | Emergency (ER) | payer OTHER ==
[~2020-11-07] VITALS: Ht 175.3 cm; Wt 113.4 kg
[~2020-11-07 12:21] MED LIST changes: +LIPITOR 40 MG T40 M1 PO
[2020-11-07 12:57] VITALS: BP 237/143
[2020-11-07] MEDS ORDERED: LOSARTAN-HCTZ1 EAC3 PO (13:08)
== END 2020-11-07 13:10 | disposition home or self-care (01) ==
LOC: ER 12:21
PROVIDERS: Emergency Medicine
DX: I10 Essential (primary) hypertension (principal); Z20.822 Contact with and (suspected) exposure to COVID-19; G43.909 Migraine, unspecified, not intractable, without status migrainosus; F41.9 Anxiety disorder, unspecified; E78.00 Pure hypercholesterolemia, unspecified; Z90.49 Acquired absence of other specified parts of digestive tract; Z98.890 Other specified postprocedural states; Z79.899 Other long term (current) drug therapy; Z88.8 Allergy status to other drugs, medicaments and biological substances; Z87.891 Personal history of nicotine dependence

== ENCOUNTER 2021-01-25 14:32 | Emergency (ER) | payer OTHER ==
[~2021-01-25] VITALS: Ht 175.3 cm; Wt 113.4 kg
[~2021-01-25 14:32] MED LIST changes: +HYDROCORTISONE3011 TRANSDERM; +OLMESARTAN-HCT1 EAC2 PO; +ROSUVASTATIN CA40 MG PO
[2021-01-25] MEDS ORDERED: ZOFRAN ODT4 MG PO (16:06)
[2021-01-25] MEDS ORDERED: NORCO5 PO (16:06)
[2021-01-25 16:32] VITALS: BP 180/108
== END 2021-01-25 16:32 | disposition home or self-care (01) ==
LOC: ER 14:32
DX: S02.2XXA Fracture of nasal bones, initial encounter for closed fracture (principal); G43.909 Migraine, unspecified, not intractable, without status migrainosus; F41.9 Anxiety disorder, unspecified; I10 Essential (primary) hypertension; E78.00 Pure hypercholesterolemia, unspecified; Z87.442 Personal history of urinary calculi; Z90.49 Acquired absence of other specified parts of digestive tract; Z98.890 Other specified postprocedural states; Z79.899 Other long term (current) drug therapy; Z88.8 Allergy status to other drugs, medicaments and biological substances; Z88.6 Allergy status to analgesic agent; Z87.891 Personal history of nicotine dependence; Y04.0XXA Assault by unarmed brawl or fight, initial encounter; Y93.89 Activity, other specified; Y92.89 Other specified places as the place of occurrence of the external cause; Y99.8 Other external cause status

== ENCOUNTER 2021-03-11 21:13 | Emergency (ER) | payer OTHER ==
[~2021-03-11] VITALS: Ht 175.3 cm; Wt 113.4 kg
[~2021-03-11 21:13] MED LIST changes: +NORCO5 PO; +ZOFRAN ODT4 MG PO
[2021-03-11] MEDS ORDERED: PROAIR HFA8.5 GM INH (23:06)
[2021-03-11] MEDS ORDERED: LIPITOR40 MG PO (23:07)
[2021-03-12 00:25] LABS: ABSOLUTE NEUTROPHILS 3.1 thou/uL (1.4-8.2); EOSINOPHILS 1.6 % (0.0-3.0); HEMATOCRIT 42.3 % (42.0-52.0); HEMOGLOBIN 14.4 gm/dL (14.0-18.0); LYMPHOCYTES 26.4 % (24.0-44.0); MCH 32.5 pg (26.0-34.0); MCHC 34.1 g/dL (28.0-37.0); MCV 95.4 fL (80.0-100.0); MONOCYTES 18.4 % (1.0-8.0); PLATELET COUNT 310 thou/uL (150-400); POLYS 52.6 % (36.0-66.0); RBC 4.44 mil/uL (4.50-6.00); RDW 12.5 % (10.5-14.5); WBC 5.8 thou/uL (4.0-11.0)
[2021-03-12 00:29] LABS: CALCIUM 8.9 mg/dL (8.5-10.1); POTASSIUM 3.7 mmol/L (3.5-5.1)
[2021-03-12 00:35] LABS: ALBUMIN 3.1 g/dL (3.4-5.0); TOTAL BILIRUBIN 0.4 mg/dL (0.2-1.0); TOTAL PROTEIN 6.9 g/dL (6.4-8.2)
[2021-03-12] MEDS ORDERED: ZOFRAN ODT4 MG PO (01:54)
[2021-03-12] MEDS ORDERED: NAPROSYN500 MG PO (01:54)
[2021-03-12 02:14] VITALS: BP 135/84
== END 2021-03-12 02:20 | disposition home or self-care (01) ==
LOC: ER 21:13
PROVIDERS: Emergency Medicine
DX: U07.1 COVID-19 (principal); R10.31 Right lower quadrant pain; E66.9 Obesity, unspecified; G43.909 Migraine, unspecified, not intractable, without status migrainosus; I10 Essential (primary) hypertension; E78.00 Pure hypercholesterolemia, unspecified; Z87.891 Personal history of nicotine dependence; Z88.8 Allergy status to other drugs, medicaments and biological substances; Z79.899 Other long term (current) drug therapy